=== PATIENT | female | born 1970 | race Caucasian/White ===

== ENCOUNTER → 2016-04-24 | Outpatient (CLI) | payer OTHER ==
[~2016-04-24] MED LIST: IBUP80TA PO; PRENTAB74 PO
--- NOTE | 2016-04-25 04:23 | REP ---
Clinical: Anatomical evaluation. Comparison: None . Findings: Examination demonstrates a single live intrauterine in cephalic presentation. motion is identified by technologist. Placenta is noted posterior and grade 0 without evidence for placenta previa or abruption. 5.6 cm anterior fibroid identified. Amniotic fluid volume is normal. Cervix measures 4.0 cm in length and appears closed. No evidence for nuchal cord. Gestational age by LMP 20 weeks 2 days with SANDY 09/09/2016 . Gestational age by current measurements 20 weeks 2 days with SANDY 09/09/2016 . FHR equals 157 beats per minute. BPD 4.8 cm 20 weeks 3 days HC 17.5 cm 20 weeks 0 days AC 16.2 cm 21 weeks 2 days FL 3.4 cm 20 weeks 4 days HL 3.3 cm 21 weeks 0 days HC/AC ratio 1.08 Estimated weight 379 grams ( 65th percentile). Anatomical assessment demonstrates normal structures including cranium, choroid plexus, cavum, cerebellum/posterior fossa, facial features, lungs, four-chamber heart/ left ventricular outflow tract, diaphragm, stomach, cord insertion/three-vessel cord, kidneys/bladder, spine, and extremities. Impression: Single live intrauterine in cephalic presentation demonstrating appropriate interval growth. 5.6 cm anterior maternal fibroid. Anatomical assessment is complete and normal. Signed by Jeet Hurt MD 04/25/2016 04:14 A
== END ==
LOC: M SMT 13:46
PROVIDERS: ATTEND Advanced Practice Midwife
DX: Z36 Encounter for antenatal screening of mother (principal); Z3A.20 20 weeks gestation of pregnancy

== ENCOUNTER → 2016-06-11 | Outpatient (CLI) | payer OTHER, MEDICAID ==
[2016-06-11 14:39] LABS: BASO % 0.4 % (0.0-1.0); EOS # 0.1 K/mm3 (0.0-0.50); EOS % 1.1 % (0.0-3.0); LARGE UNSTAINED CELL # 0.1 K/mm3 (0.0-0.4); LARGE UNSTAINED CELL % 1.1 % (0.0-4.0); LYMPH % 12.2 % (24.0-44.0); MEAN CORPUSCULAR HEMOGLOBIN 31.6 pg (27.0-33.0); MEAN CORPUSCULAR HGB CONC 33.2 g/dl (32.0-36.5); MONO # 0.3 K/mm3 (0.0-0.8); MONO % 4.5 % (0.0-5.0); NEUTROPHILS % 80.7 % (36.0-66.0); PLATELET COUNT, AUTOMATED 143 k/mm3 (150-450); WHITE BLOOD COUNT 7.4 K/mm3 (4.0-10.0)
== END ==
LOC: M SMT 10:20
PROVIDERS: ATTEND Specialist
DX: Z36 Encounter for antenatal screening of mother (principal); Z3A.00 Weeks of gestation of pregnancy not specified

== ENCOUNTER → 2016-06-21 | Outpatient (CLI) | payer OTHER | LOC: M LAB 08:18 | PROVIDERS: ATTEND Specialist | DX: Z36 Encounter for antenatal screening of mother (principal); Z3A.00 Weeks of gestation of pregnancy not specified ==

== ENCOUNTER 2016-08-16 16:01 | Inpatient (IN) | payer OTHER ==
[~2016-08-16] VITALS: Ht 157.5 cm; Wt 66.0 kg
[2016-08-16] MEDS: LR 1,000 ML IV SCH (00:30)
[~2016-08-16 16:01] MED LIST changes: -IBUP-1114 PO; -PERC5TAB6 PO
[2016-08-16] MEDS ORDERED: LR 1,000 ML IV SCH ×2 (16:14→21:45)
[2016-08-16] MEDS ORDERED: LACTATED RINGER'S 1000 ML IV STA (16:14)
[2016-08-16] MEDS ORDERED: BICITRA 30ML SOLN UDC PO ONE (16:15)
[2016-08-16] MEDS ORDERED: ceFAZolin SOD 1 GM in D5W MINI-BAG PLUS 50 ML IV ONE (16:15)
[2016-08-16 16:19] VITALS: BP 137/80
[2016-08-16 16:49] LABS: MEAN CORPUSCULAR HEMOGLOBIN 32.6 pg (27.0-33.0); MEAN CORPUSCULAR HGB CONC 34.4 g/dl (32.0-36.5); MEAN CORPUSCULAR VOLUME 94.9 fl (80.0-96.0); WHITE BLOOD COUNT 9.4 K/mm3 (4.0-10.0)
[2016-08-16 17:26] VITALS: BP 126/68
--- NOTE | 2016-08-16 18:39 | HPE ---
DATE OF ADMISSION: 08/16/2016 HISTORY: 46-year-old female at 36- 4/7 weeks gestation by last menstrual period (LMP) consistent with 9-week ultrasound with an estimated date of confinement (EDC) of 09/09/2016, presents with loss of fluid per vagina about 10 a.m. on the morning of admission. She continued to leak throughout the day. She denies contractions or vaginal bleeding. There is good movement. COURSE: The patient initiated care at 9 weeks gestation. On 02/06/2016 her trimester blood pressure was 112/64, weight was 124 pounds. course was unremarkable. Patient denied all genetic screening including DNA testing. OBSTETRICAL HISTORY: 1. October 1988 37 week vaginal delivery 5 pound 9 ounce female , section for breach presentation. 2. April 2001 40 week vaginal delivery 6 pound female infant successful v-back. 3. February 2012 36 week vaginal delivery 4 pounds 7 ounce female infant, section. PAST MEDICAL HISTORY: Noncontributory. SURGICAL HISTORY: times two. ALLERGIES: No known drug alleries. SOCIAL HISTORY: The patient is . She denies cigarettes, alcohol, or drug use. FAMILY HISTORY: Noncontributory. PHYSICAL EXAMINATION: Vital signs: Blood pressure 124/74, pulse 80. GENERAL: No apparent distress. HEAD/NECK: Examination normal. LUNGS: Clear. HEART: Regular rate and rhythm. ABDOMEN: Nontender, gravid. heart tones category 1. Contractions none. Sterile vaginal exam, grossly ruptured clear fluid noted. Positive ferning. Cervix is 1 cm, 50%, vertex. EXTREMITIES: Nontender. LABORATORIES: Blood type O positive, rubella immune, rapid plasma reagin nonreactive, hepatitis B and C negative. HIV negative. Diabetes screen 136 with a normal 3RGTT. ASSESSMENT: 46-year-old, 4, para 3 female at 36-4/7 weeks gestation with premature rupture of membranes with a history of two prior 's. The patient is admitted on 08/16/2016. PLAN: Repeat section.
[2016-08-16 19:11] VITALS: BP 114/64
[2016-08-16] MEDS ORDERED: NALBUPHINE HCL 10 MG/ML AMP (J2300) IV PRN ×2 (20:15→21:45)
[2016-08-16] MEDS ORDERED: NALOXONE INJ 0.4 MG/1 ML VIAL (J2310) IV PRN ×2 (20:15)
[2016-08-16] MEDS ORDERED: ONDANSETRON 4MG/2ML VIAL (J2405) IV PRN ×3 (20:15→21:45)
[2016-08-16] MEDS ORDERED: PHENYLephrine HCL 500 MCG/5 ML (100MCG/ML) SYRINGE (J2370) As Ordered ONE (20:22)
[2016-08-16] MEDS ORDERED: MORPHINE PRES-FREE INJ 10 MG/10 ML VIAL (J2274) As Ordered ONE (20:22)
[2016-08-16] MEDS ORDERED: OXYTOCIN INJ 10 UNITS/ML VIAL (J2590) As Ordered ONE (20:22)
[2016-08-16] MEDS ORDERED: KETOROLAC 60 MG/2 ML VIAL (J1885) As Ordered ONE (20:40)
[2016-08-16] MEDS ORDERED: ONDANSETRON 4MG/2ML VIAL (J2405) As Ordered ONE (21:29)
[2016-08-16] MEDS ORDERED: DOCUSATE SODIUM 100 MG CAP PO PRN (21:30)
[2016-08-16] MEDS ORDERED: PERCOCET 5MG/325MG TAB PO PRN ×3 (21:30→21:45)
[2016-08-16] MEDS ORDERED: RHOGAM 300 MCG (1500 IU) INJ (J2790) IM SCH (21:30)
[2016-08-16] MEDS ORDERED: MEASLES,MUMPS,RUBELLA VACCINE INJ (MMR-II) (90707) SC SCH (21:30)
[2016-08-16] MEDS ORDERED: OXYTOCIN DRIP 30 UNITS in APPROPRIATE DILUENT 1 EA IV ONE (21:30)
[2016-08-16] MEDS ORDERED: fentaNYL 100 MCG/2 ML INJECTION (J3010) IV PRN (21:45)
[2016-08-16] MEDS ORDERED: HYDROmorphone HCL 1 MG/ML SYRINGE (J1170) IV PRN (21:45)
[2016-08-16] MEDS ORDERED: diphenhydrAMINE INJ 50MG/ML VIAL (J1200) IV PRN (21:45)
[2016-08-16] MEDS: METOCLOPRAMIDE INJ 10MG/2ML VIAL (J2765) IV PRN (23:07)
[2016-08-16 23:30] VITALS: BP 104/59
[2016-08-17] VITALS (8 sets, daily range): BP systolic 95–112; BP diastolic 50–60
[2016-08-17] MEDS ORDERED: LACTATED RINGER'S 1000 ML IV ONE (01:30)
[2016-08-17] MEDS ORDERED: PERC5TAB6 PO (02:18)
[2016-08-17] MEDS: KETOROLAC 30 MG/ML VIAL (J1885) IV SCH ×4 (03:40→21:27)
[2016-08-17] MEDS: LR 1,000 ML IV SCH ×3 (06:02→21:24)
[2016-08-17] MEDS: METOCLOPRAMIDE INJ 10MG/2ML VIAL (J2765) IV PRN (06:17)
[2016-08-17 07:20] LABS: MEAN CORPUSCULAR HEMOGLOBIN 32.8 pg (27.0-33.0); MEAN CORPUSCULAR HGB CONC 34.5 g/dl (32.0-36.5); RED CELL DISTRIBUTION WIDTH 14.1 % (11.5-14.5); WHITE BLOOD COUNT 13.4 K/mm3 (4.0-10.0)
[2016-08-17] MEDS: PRENATAL VITAMIN TAB PO SCH (08:42)
--- NOTE | 2016-08-17 10:55 | RO ---
DATE OF PROCEDURE: 08/16/2016 PREPROCEDURE DIAGNOSES: 1. 36 4/7 week premature rupture of membranes. 2. Prior section times two. POSTPROCEDURE DIAGNOSES: 1. 36 4/7 week premature rupture of membranes. 2. Prior section times two. PROCEDURE: Repeat low transverse section and bilateral tubal ligation. SURGEON: Dr. Ken Oseguera SENIOR INTERACTIVE DEVELOPER: ANESTHESIA: Spinal. ESTIMATED BLOOD LOSS: 500 mL. URINE OUTPUT: 25 mL FINDINGS: 2037 gram female , Apgars 9 and 9. DESCRIPTION OF PROCEDURE: The patient taken to the operating room where spinal anesthesia was induced. She was prepped and draped in a sterile fashion in the supine position. A Barksdale catheter was placed. A Pfannenstiel skin incision was made with the scalpel and carried through to the fascia. The fascia was nicked and extended bilaterally. The fascia was dissected off the rectus muscles. The rectus muscles were divided. The peritoneal cavity was entered. A bladder flap was created. A curvilinear incision was made in the lower uterine segment until clear fluid was noted. This was extended manually. The was delivered in the vertex position without difficulty. The cried spontaneous and was handed to the awaiting grinder operator surface tool. The placenta was expressed. The uterus was exteriorized Uterine incision was closed with #0 Vicryl in a running locked fashion. A second imbricating layer of #0 Vicryl was placed. Fallopian tubes were grabbed at their mid portion. A window was created in the broad ligament. Free tie was placed around a knuckle of tube on either side. The knuckle of tube was excised. Paratubal cysts was excised at the left fallopian segment. The uterus was placed back in the abdomen. The peritoneum was closed with #2-0 Vicryl in a running fashion. The fascia was closed with #0 Vicryl in a running fashion. The deep layer was irrigated and closed with #3-0 chromic. The skin was closed with #4-0 Monocryl. Sponge, instrument and needle counts were correct.
[2016-08-17] MEDS ORDERED: LR 1,000 ML IV ONE ×2 (11:30→16:45)
[2016-08-18] MEDS: IBUPROFEN 800 MG TAB PO SCH ×3 (05:30→21:30)
[2016-08-18 05:34] VITALS: BP 115/61
[2016-08-18] MEDS: PRENATAL VITAMIN TAB PO SCH (10:41)
[2016-08-18 18:13] VITALS: BP 127/63
[2016-08-19] MEDS: IBUPROFEN 800 MG TAB PO SCH (05:30)
[2016-08-19 05:45] VITALS: BP 114/61
[2016-08-19] MEDS ORDERED: IBUP-1114 PO (07:07)
== END 2016-08-19 09:35 | disposition home or self-care (01) | DRG 540 ==
LOC: M LDI 16:01 → M OBS 22:59
PROVIDERS: ADMIT Specialist; ATTEND Specialist
PROC: 0UB70ZZ Excision of Bilateral Fallopian Tubes, Open Approach (ICD-10-PCS; 2016-08-16)
PROC: 10D00Z1 Extraction of Products of Conception, Low, Open Approach (ICD-10-PCS; principal; 2016-08-16 20:09)
DX: O60.14X0 Preterm labor third trimester with preterm delivery third trimester, not applicable or unspecified (principal); N83.8 Other noninflammatory disorders of ovary, fallopian tube and broad ligament; Z37.0 Single live birth; Z3A.36 36 weeks gestation of pregnancy; O34.211 Maternal care for low transverse scar from previous cesarean delivery; O09.523 Supervision of elderly multigravida, third trimester; O26.893 Other specified pregnancy related conditions, third trimester; Z30.2 Encounter for sterilization

== ENCOUNTER → 2016-08-16 | Outpatient (REF) | payer OTHER ==
[~2016-08-16] MED LIST changes: +IBUP-1114 PO; +PERC5TAB6 PO
== END ==
LOC: M LAB REF 17:01
PROVIDERS: ATTEND Specialist
DX: Z36 Encounter for antenatal screening of mother (principal); Z3A.00 Weeks of gestation of pregnancy not specified

== ENCOUNTER → 2017-10-29 | Outpatient (REF) | payer BC ==
[2017-10-31 14:16] LABS: HPV HYBRID CAPTURE II Negative (Negative)
== END ==
LOC: M LAB REF 19:48
DX: Z12.4 Encounter for screening for malignant neoplasm of cervix (principal)
CPT/HCPCS: G0123

== ENCOUNTER → 2018-11-04 | Outpatient (REF) | payer BC ==
[~2018-11-04] MED LIST changes: +IBUP-1114 PO; +PERC5TAB12 PO
[2018-11-07 14:50] LABS: HPV HYBRID CAPTURE II Negative (Negative)
== END ==
LOC: M LAB REF 19:35
PROVIDERS: ATTEND Specialist
DX: Z12.4 Encounter for screening for malignant neoplasm of cervix (principal)
CPT/HCPCS: 87624; G0123

== ENCOUNTER → 2019-03-25 | Outpatient (CLI) | payer BC ==
--- NOTE | 2019-03-26 20:21 | REPMRS ---
Patient History The patient states she had a clinical breast exam in 2018. Family history of lymphoma in mother, lung cancer in father, lukemia in brother. Digital Woman Screen Mammo: March 25, 2019 - Exam #: [id number] Bilateral CC and MLO view(s) were taken. Technologist: Azucena Vivar, Technologist Prior study comparison: July 18, 2017, bilateral digital woman screen mammo, performed at [facility]. FINDINGS: The breast tissue is heterogeneously dense. This may lower the sensitivity of mammography. There is a moderate amount of heterogeneously dense fibroglandular tissue which is fairly symmetric. There is no interval development of dominant mass, architectural distortion, or grouped microcalcification typical of malignancy. There has been no change in the appearance of the mammogram from the prior studies. 3-D tomosynthesis shows no additional findings. Assessment: BI-RADS/ACR category 1 mammogram. Negative Mammogram. Recommendation Routine screening mammogram of both breasts in 1 year (for women over age 40). This patient's Lifetime Breast Cancer RIsk is estimated at 12.2 %. This mammogram was interpreted with the aid of an FDA-approved computer-aided dectection system. Electronically Signed By: Spenser Dodd MD 03/26/192019
== END ==
LOC: M WHC 11:55
PROVIDERS: ATTEND Specialist
DX: Z12.31 Encounter for screening mammogram for malignant neoplasm of breast (principal)

== ENCOUNTER → 2019-07-20 | Outpatient (CLI) | payer BC ==
[~2019-07-20] MED LIST changes: +BIOT1CAP2 PO; +IBUP-1022 PO; +IRON15CH PO; +MULTCAP PO; +OXYC1TAB23 PO
== END ==
LOC: M LABSMTC 11:36
PROVIDERS: ATTEND Anesthesiology
DX: Z11.59 Encounter for screening for other viral diseases (principal)

== ENCOUNTER 2019-07-22 07:55 | Day surgery (SDC) | payer BC ==
[~2019-07-22] VITALS: Ht 157.5 cm; Wt 56.9 kg
[2019-07-22] VITALS (9 sets, daily range): BP systolic 118–143; BP diastolic 70–87
[~2019-07-22 07:55] MED LIST changes: -BIOT1CAP2 PO; -IBUP-1022 PO; +LR 1,000 ML IV ONE; -OXYC1TAB23 PO; +ceFAZolin SOD 2 GM in IV 1 EA IV ONE
[2019-07-22 08:37] LABS: HEMATOCRIT 35.1 % (36.0-47.0); HEMOGLOBIN 11.7 g/dl (12.0-15.5); MEAN CORPUSCULAR HEMOGLOBIN 30.5 pg (27.0-33.0); MEAN CORPUSCULAR HGB CONC 33.3 g/dl (32.0-36.5); MEAN CORPUSCULAR VOLUME 91.6 fl (80.0-96.0); PLATELET COUNT, AUTOMATED 171 10^3/uL (150-450); RED BLOOD COUNT 3.83 10^6/uL (4.00-5.40); WHITE BLOOD COUNT 4.2 10^3/uL (4.0-10.0)
[2019-07-22] MEDS ORDERED: ONDANSETRON 4MG/2ML VIAL As Ordered ONE (08:58)
[2019-07-22] MEDS ORDERED: MIDAZOLAM INJ 2MG/2ML VIAL (J2250 PER 1MG) As Ordered ONE (08:58)
[2019-07-22] MEDS ORDERED: PHENYLephrine HCL 500 MCG/5 ML (100MCG/ML) SYRINGE (J2370) As Ordered ONE (08:58)
[2019-07-22] MEDS ORDERED: fentaNYL 250 MCG/5 ML INJECTION (J3010) As Ordered ONE (08:58)
[2019-07-22] MEDS ORDERED: ePHEDrine SULFATE 25 MG/5 ML(5MG/ML) SYRINGE As Ordered ONE ×2 (08:58→11:58)
[2019-07-22] MEDS ORDERED: dexameTHASONE 4 MG/ML 1ML VIAL (J1100 PER 1MG) As Ordered ONE (08:58)
[2019-07-22] MEDS ORDERED: ROCURONIUM BROMIDE 50 MG/5 ML VIAL As Ordered ONE ×2 (08:59→10:16)
[2019-07-22] MEDS ORDERED: propofoL 200 MG/20 ML VIAL As Ordered ONE (08:59)
[2019-07-22] MEDS ORDERED: SUGAMMADEX SODIUM 500 MG/5 ML VIAL (BRIDION) As Ordered ONE (08:59)
[2019-07-22] MEDS ORDERED: LIDOCAINE 2% 100MG/5ML SDV (FOR ANES.) As Ordered ONE (08:59)
[2019-07-22] MEDS ORDERED: BIOT1CAP2 PO (09:09)
[2019-07-22] MEDS ORDERED: BUPIVACAINE HCL 0.25% 30ML VIAL As Ordered ONE (10:49)
[2019-07-22] MEDS ORDERED: OXYC1TAB23 PO (11:25)
[2019-07-22] MEDS ORDERED: IBUP-1022 PO (11:26)
[2019-07-22] MEDS ORDERED: KETOROLAC 60 MG/2 ML VIAL As Ordered ONE (12:33)
[2019-07-22] MEDS ORDERED: ONDANSETRON 4MG/2ML VIAL IV PRN ×2 (13:15)
[2019-07-22] MEDS ORDERED: LR 1,000 ML IV SCH (13:15)
[2019-07-22] MEDS ORDERED: oxyCODONE 5MG TAB PO PRN (13:15)
[2019-07-22] MEDS ORDERED: fentaNYL 100 MCG/2 ML INJECTION (J3010) IV PRN (13:15)
[2019-07-22] MEDS ORDERED: MORPHINE 4 MG/ML 1ML VIAL/SYRINGE (J2270) IV PRN (13:30)
[2019-07-22] MEDS ORDERED: PERCOCET 5MG/325MG TAB PO PRN ×2 (13:30)
[2019-07-22] MEDS: LR 1,000 ML IV SCH ×2 (15:03→20:23)
[2019-07-22] MEDS ORDERED: KETOROLAC 30 MG/ML 1ML VIAL IV PRN (18:30)
[2019-07-22] MEDS ORDERED: PROMETHAZINE INJ 25 MG/ML VIAL (J2550) IV PRN (18:45)
[2019-07-22] MEDS: DOCUSATE SODIUM 100 MG CAP PO SCH (20:23)
[2019-07-23 03:50] VITALS: BP 114/68
[2019-07-23] MEDS: LR 1,000 ML IV SCH (04:02)
[2019-07-23 08:00] VITALS: BP 113/65
[2019-07-23] MEDS: DOCUSATE SODIUM 100 MG CAP PO SCH (09:04)
[2019-07-23 10:00] VITALS: BP 114/65
--- NOTE | 2019-07-24 20:56 | RO ---
DATE OF PROCEDURE: 07/22/2019 PREPROCEDURE DIAGNOSIS: Menorrhagia, fibroids. POSTPROCEDURE DIAGNOSIS: Menorrhagia, fibroids. PROCEDURE: Robotic-assisted laparoscopic hysterectomy and bilateral salpingectomy, cystoscopy. SURGEON: Ken Oseguera MD SCIENTIFIC RECRUITER: Valencia Freitas NP ANESTHESIA: General endotracheal. ESTIMATED BLOOD LOSS: 150 mL. URINE OUTPUT: 150 mL. FINDINGS: Moderately enlarged uterus with fibroids. Fallopian tubes with evidence of prior tubal sterilization. Normal ovaries. Normal upper abdomen. DESCRIPTION OF PROCEDURE: The patient was taken to the operating room where general endotracheal anesthesia was induced. She was prepped and draped in a sterile fashion in the dorsal lithotomy position. A Barksdale catheter was placed. A Entrecare uterine manipulator was placed. A periumbilical incision was made with a scalpel. Veress needle was placed through this incision while tenting up on the skin of the abdomen. Intraabdominal location of the Veress needle was assessed with the use of a saline-filled syringe. Pneumoperitoneum was created. The Veress needle was removed. An 8 mm trocar using [email or web address] was inserted through this incision. Visualization of the endometrial cavity revealed findings noted above. Three 8 mm suprapubic ports were placed under direct visualization. The patient was placed in Trendelenburg position. The Da Rasheed robot was docked to the ports. Using the fenestrated bipolar instrument and the vessel sealer, the attachments to the fallopian tube were coagulated and incised. The utero-ovarian ligaments and round ligaments were coagulated and incised. The anterior and posterior leaves of the broad ligament were . The uterine vessels were coagulated and incised. Bladder flap was created with a combination of blunt and sharp dissection. Using the monopolar Endo Josh, colpotomy was created in the upper vagina at the level of the VCare cup. This was extended circumferentially around the vagina. Specimen containing the uterus, cervix and both fallopian tubes was removed through the vagina. Vaginal cuff was closed with #1 V-Loc suture in a running fashion. The pelvis was irrigated with good hemostasis noted. All instruments were removed. Cystoscopy was performed using a 70-degree cystoscope. Bilateral ureteral jets were identified. There was no evidence of injury to the bladder. All instruments were removed. The skin was closed with #4-0 Monocryl subcuticular sutures. Sponge, instrument and needle counts were correct. Valencia Freitas NP, assisted throughout the entire procedure. She positioned the patient, manipulated the uterus. She removed the specimen and helped to close. She was indispensable to the procedure.
== END 2019-07-23 14:28 | disposition home or self-care (01) ==
LOC: M SDC 07:55 → M MSPAV 14:23 → M SDC 07-23 14:28
PROVIDERS: ATTEND Specialist
DX: R10.2 Pelvic and perineal pain (principal); N72 Inflammatory disease of cervix uteri; D25.1 Intramural leiomyoma of uterus; Z88.8 Allergy status to other drugs, medicaments and biological substances
CPT/HCPCS: 36415; 58571; 81025; 85027; 86850; 86900; 86901; 88307; 96361; 96374; 96375; J0690; J1100; J1885; J2250; J2370; J2405; J3010